=== PATIENT | female | born 1960 | race Caucasian/White ===

== ENCOUNTER 2021-12-18 06:48 | Day surgery (SDC) | payer OTHER, MEDICAID, SELFPAY ==
--- NOTE | 2021-12-18 06:18 | W.ANESPRE ---
General Info Date of Service Date Performed: 12/18/21 Height: 5 ft 2.5 in Weight: 84.822 kg Body Mass Index (BMI): 33.6 Surgical Procedure: Operation Date: 12/18/21 08:25 Proposed Procedure Side Surgeon p Cataract Extraction with IOL Implant Right Pillo Rivera MD Meds Allergies and Home Medications Allergies Allergy/AdvReac Type Severity Reaction Status Date / Time oxycodone Allergy Intermediate Itching Unverified 12/18/21 07:05 Home Medication Medication Instructions Recorded acetaminophen 325 mg tablet 650 mg PO DAILY PRN 12/16/21 exenatide microspheres 2 mg/0.85 2 mg subcut DIRECTED 12/16/21 mL subcutaneous auto-injector (ByPrivarisse) linaclotide 145 mcg capsule 145 mcg PO DAILY 12/16/21 (Linzess) lisinopril 2.5 mg tablet 2.5 mg PO DAILY 12/16/21 melatonin 1 mg tablet 1 mg PO DAILY 12/16/21 multivitamin 1 cap PO DAILY 12/16/21 senna-docusate sodium tablet 2 tab PO DAILY 12/16/21 simvastatin 40 mg tablet 40 mg PO DAILY 12/16/21 ursodiol 250 mg tablet 500 mg PO BID 12/16/21 venlafaxine 37.5 mg 37.5 mg PO DAILY 12/16/21 tablet,extended release 24 hr [facility] Medical History Medical History (Updated 12/17/21 @ 08:49 by Rashid Salguero) 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 stated she was told during her neck surgery that she was hard to intubate, that was a long time ago, and i have had no trouble since then Surgical History Surgical History (Updated 12/17/21 @ 08:49 by Rashid Salguero) H/O cystoscopy History of ankle surgery History of appendectomy History of liver biopsy Hx laparoscopic cholecystectomy Hx of arthroscopic knee surgery Hx of cervical discectomy Hx of colonoscopy Hx of neck surgery FACETECTOMY/CERVICAL/4/5/6 /rt Hx of right knee surgery Hx of shoulder surgery HX OF ACROMIOPLASTY AND DISTAL CLAVICLE EXCISION S/P trigger finger release Tobacco Smoking/Tobacco Use Status: Current every day Tobacco Type: cigarettes Alcohol Alcohol Intake: never Substance Use Substance use: Never Substance use type: does not use Vital Signs and Lab Results Lab Results Blood Type / Crossmatch: No Data to Display Complete Blood Count: No Data to Display Complete Metabolic Panel: No Data to Display Liver Function Panel: No Data to Display Coagulation Panel: No Data to Display Cardiac Panel: No Data to Display Arterial Blood Gas: No Data to Display Venous Blood Gas: No Data to Display Pancreas Panel: No Data to Display Thyroid Panel: No Data to Display Infectious Disease: No Data to Display Blood Cultures: No Data to Display Toxicology Panel: No Data to Display Anesthesia Assessment and Plan Anesthesia History Personal History: Other Family History: No Family History of Anesthesia Complications Exercise Tolerance Exercise Tolerance: Metabolic Equivalents>4 Cardiac & Pulmonary Exam Cardiac Exam: Normal S1/S2 Heart Sounds Pulmonary Exam: Clear Bilateral Breath Sounds Implantable Cardiac Device Does patient have a Pacemaker or an ICD?: No Airway Exam Known Difficult Airway: No Mallampati Class: 4 Mouth Opening: Normal (> 3cm) Thyromental Distance: Less than 3 cm Neck Range of Motion: Full ROM and Limited ROM Neck Circumference: Normal Teeth Condition: Edentulous ASA Classification ASA Score: ASA 3 Emergency Case?: No NPO Status NPO Status: NPO Clears >2 hours, Solids >8 hours Anesthesia Plan Resuscitation Status: Full Code Anesthesia Technique: MAC Anesthesia Airway Planned: Natural Airway Monitors Used: Standard Monitors Preoperative Comments:: 61 yo female for cataract removal. Sig PMHx: GERD, DJD, HTN, DM2, cirrhosis, smoker. Would like MKO
[2021-12-18 06:55] VITALS: BP 121/52; PULSE 88; RESP 18; TEMP 36.4; O2SAT 98
[2021-12-18] MEDS: Tropicam./Phenyleph. (1/2.5%) 5 ML BTL ×3 (07:05→07:20)
[2021-12-18 07:07] VITALS: BMI 33.6
[2021-12-18] MEDS: Tetracaine 0.5% 4 ML BTL (08:01)
[2021-12-18] MEDS: Lidocaine 2% Jelly 6 ML SYR (08:01)
[2021-12-18] MEDS: Balanced Salt Soln.-PLUS 500 ML BAG (08:14)
[2021-12-18] MEDS: Duovisc Viscoelastic System EACH 1 EACH (08:17)
[2021-12-18] MEDS: Povidone-Iodine Ophth 30 ML BTL (08:17)
--- NOTE | 2021-12-18 08:26 | W.PM.DSUDISC ---
Discharge Plan Disposition Patient Disposition: HOME Condition: Good Discharge Details Attending Provider: Pillo Rivera Primary Care Provider: Clare Pena Home Meds and New Rx's Prescriptions: No Action acetaminophen 325 mg Tablet 650 mg PO DAILY PRN simvastatin 40 mg Tablet 40 mg PO DAILY ursodiol 250 mg Tablet 500 mg PO BID multivitamin Capsule 1 cap PO DAILY lisinopril 2.5 mg Tablet 2.5 mg PO DAILY senna-docusate sodium Tablet 2 tab PO DAILY melatonin 1 mg Tablet 1 mg PO DAILY venlafaxine 37.5 mg Tablet Extended Release 24hr 37.5 mg PO DAILY Linzess 145 mcg Capsule 145 mcg PO DAILY Bydureon BCise 2 mg/0.85 mL Auto-Injector 2 mg SUBCUT DIRECTED Discharge Instructions Stand Alone Forms: Post-op Topical Cataract, Yao Barber (DSU) Discharge Orders Discharge Orders: Discharge Order (Routine); Ordered 12/18/21 Ordered By: Pillo Rivera DS: Diagnosis Discharge Diagnosis (1) Nuclear sclerotic cataract of right eye: Status: Resolved (2) Posterior subcapsular age-related cataract, right eye: Status: Resolved
--- NOTE | 2021-12-18 08:28 | W.PM.OP ---
Date of service: 12/18/21 Time of Service: 07:28 Operative Note Operative Note DATE OF PROCEDURE: 12/18/21 PRE-OP DIAGNOSIS: Nuclear/posterior subcapsular cataract, right eye POST-OP DIAGNOSIS: same PROCEDURE: Cataract extraction using phacoemulsification with intraocular lens implant, right eye SURGEON: Pillo Rivera ANESTHESIA TYPE: Local By Surgeon and MAC Refer to Anesthesia Record ESTIMATED BLOOD LOSS: 0 PATHOLOGY: none sent COMPLICATIONS: None Patient was transported to: same day Patient's condition: stable Implants: Hector & Hector/JANET Tecnis [id number] Indications: Progressive visual loss due to cataract, right eye Procedure Description: CATARACT SURGERY OPERATIVE REPORT PREOPERATIVE DIAGNOSIS: 1. Nuclear/posterior subcapsular cataract, right eye POSTOPERATIVE DIAGNOSIS: Same OPERATION: 1. Cataract extraction using phacoemulsification with posterior chamber intraocular lens implant, right eye. IOL: IOL Loading Unit Tool Setter/Model: Hector [employer] Hector / JANET Tecnis [id number] IOL Power: + 22.0 diopters IOL Serial Number: [id number] Optic Diameter: 6.0mm Haptic/Overall Diameter: 13.0mm PHACO INFO: Silas The[employer]urion Vision System with OZil and Active Fluidics Cumulative Dispersed Energy (CDE): 10.99 seconds SURGEON: Pillo Rivera MD, VICKY ANESTHESIA: Monitored Anesthesia Care (MAC), with local sub-tenon's anesthetic infiltration COMPLICATIONS: None SPECIMENS: None INDICATIONS FOR PROCEDURE: The patient is a 61-year-old lady with history of diminished visual acuity in her right eye secondary to the development of nuclear and posterior subcapsular cataract. She is significantly symptomatic that she desires cataract surgery and attempt to improve and maximize her vision. The option of cataract surgery was offered to the patient and she felt she was symptomatic enough that she wished to proceed. PROCEDURE: The correct surgical eye was identified and marked as the right eye and the pupil was dilated in the preoperative area using mydriatics and cycloplegics. The dilated pupil size was 7.0 mm. Oral sedation was administered in the form of an Imprimis MKO Melt (midazolam 3mg/ketamine 25mg/ondansetron 2mg). The patient was brought to the operating room where cardiopulmonary monitoring was instituted and surgical time-out was performed, confirming the correct operative eye and IOL power. Topical anesthesia was administered and ophthalmic povidone-iodine 5% was instilled into the conjunctival fornices. Lidocaine gel was applied to the cornea and the wilton-ocular area was prepped with Betadine 10% solution and draped in the usual sterile fashion for intraocular surgery, including an aperture drape. A Tegaderm transparent film dressing was cut in half and used to cover the lashes and lid margins. Care was taken to sequester the lashes and lid margins under the Tegaderm dressing. A lid speculum was placed between the lids of the operative eye and the Silas LuxOR Revalia operating microscope was maneuvered into position. Lois scissors were then used to make a conjunctival buttonhole approximately 6mm posterior to the limbus in the inferonasal quadrant. Blunt dissection was carried out to expose bare sclera, and a blunt-tipped sub-tenon?s anesthesia cannula was introduced and passed posteriorly along the globe where non-preserved plain lidocaine was injected into posterior sub-Tenon?s space. A sideport knife was used to make a paracentesis port inferotemporally. Intraocular phenylephrine/lidocaine was injected into the anterior chamber. The anterior chamber was filled with viscoelastic. A 2.4mm keratome knife was used to construct a 2-plane near-clear corneal tunnel extending 2.0mm into clear cornea superiortemporally. A flap was raised on the anterior capsule and capsulorhexis forceps were used to complete a continuous curvilinear capsulorhexis of 5.5 mm. Balanced salt solution was then used to perform cortical cleaving hydrodissection and nuclear hydrodelineation until the lens could be freely rotated within the capsular bag. The lens nucleus was then disassembled and removed within the capsular bag and iris plane using phacoemulsification. Residual cortical material was removed using the I/A handpiece. The posterior capsule was carefully polished to remove as much residual lens epithelial cells as safely possible. The capsular bag was then inflated and the anterior chamber deepened with viscoelastic. The lens implant described above was inserted into the capsular bag using the JANET Clark'S Point Injector. A Kuglen hook was used to dial the IOL into position. Residual viscoelastic was then removed first from posterior to the IOL, then from the anterior chamber using the I/A handpiece. The lens implant was noted to center nicely within the capsular bag. The incisions were stromally hydrated, and the anterior chamber was reformed using BSS. Then 0.5cc of moxifloxacin 1.0mg/ml were injected into the capsular bag and anterior chamber. The incisions were checked with a Weck spear and found to be secure. Several drops of ophthalmic povidone-iodine 5% were then applied to the eye followed by two drops of Imprimis combination prednisolone/moxifloxacin/nepafenac solution. The drapes were removed and a clear plastic protective eye shield was placed over the eye. The patient was then returned to Same Day Surgery in stable condition.
[2021-12-18 08:30] VITALS: BP 118/57; PULSE 77; RESP 18; TEMP 36.5; O2SAT 96
--- NOTE | 2021-12-18 08:42 | W.ANESPOSTOP ---
Postoperative Evaluation Date, Time and Location Date Performed: 12/18/21 Time Performed: 07:42 Patient Location: Day Surgery Unit Vital Signs Most Recent Imported Vital Signs: Most Recent Vital Signs Temp Pulse Resp BP Pulse Ox 36.5 C 77 18 118/57 L 96 12/18/21 08:30 12/18/21 08:30 12/18/21 08:30 12/18/21 08:30 12/18/21 08:30 Pain Score Most Recent Pain Score: Most Recent Pain Score Pain Level 0 12/18/21 08:30 Assessment Mental Status: Awake (Alert & Oriented to Patient Baseline) Airway and Respiratory Function: Patent airway with normal (patient baseline) respiratory exam Cardiovascular Function: Hemodynamically Stable Hydration Status: Adequately Hydrated Nausea & Vomiting: No Nausea or Vomiting Pain: Pt. Denies Any Pain Peripheral Nerve Block: Patient did not receive a nerve block
[2021-12-18 08:57] VITALS: BP 114/70; PULSE 78; RESP 16; TEMP 36.3; O2SAT 95
== END 2021-12-18 09:00 | disposition home or self-care (01) ==
PROVIDERS: Visit Provider Ophthalmology
PROC: (CPT 66984; principal; 2021-12-18 08:15)
DX: H25.041 Posterior subcapsular polar age-related cataract, right eye (principal); I10 Essential (primary) hypertension; K21.9 Gastro-esophageal reflux disease without esophagitis; E11.9 Type 2 diabetes mellitus without complications; Z79.4 Long term (current) use of insulin
CPT/HCPCS: 66984; V2632